=== PATIENT | female | born 1970 | race Caucasian/White ===

== ENCOUNTER 2022-08-13 14:17 | Emergency (ER) | payer MEDICAID ==
[~2022-08-13] VITALS: Ht 170.2 cm; Wt 61.2 kg
[2022-08-13 14:18] VITALS: BP_SYST 155
--- NOTE | 2022-08-13 14:45 | NUR ---
PT BIBA AWAKE AND LETHARGIC, AO4. NO SOB OR DISTRESS. PT FIANCE CALL [phone] DUE TO GENERALIZED WEAKNESS. PT WEAK AND SAID SHE COULDNT GET OUT OF BED. PT STATES HER HIP AND RECTUM HURTS. PT STATES SHE HAS RECTAL RED BLEEDING FOR X2 DAYS. PT HAS HX OF HTN, CHF, ETOH.
--- NOTE | 2022-08-13 15:04 | NUR ---
MD DR BRADLEY AT BEDSIDE
--- NOTE | 2022-08-13 16:40 | NUR ---
EKG performed at BS by RP. Physician given copy of EKG for review.
[2022-08-13 16:56] LABS: BASOPHILS % (AUTO) 0.9 % (0.0-2.0); EOSINOPHILS # (AUTO) 0.1 K/uL (0.0-0.4); EOSINOPHILS % (AUTO) 2.1 % (0.0-4.0); HEMATOCRIT 43.3 % (36-48); HEMOGLOBIN 14.8 g/dL (12.0-16.0); LYMPHOCYTES # (AUTO) 0.6 K/uL (1.0-5.5); LYMPHOCYTES % (AUTO) 15.3 % (20.5-51.5); MEAN CORPUSCULAR HEMOGLOBIN 30 pg (27-31); MEAN CORPUSCULAR HGB CONC 34 % (32-36); MEAN CORPUSCULAR VOLUME 87 fL (79.0-98.0); MONOCYTES # (AUTO) 0.3 K/uL (0.0-1.0); MONOCYTES % (AUTO) 7.9 % (1.7-9.3); NEUTROPHILS # (AUTO) 3.1 K/uL (1.8-7.7); NEUTROPHILS % (AUTO) 73.8 % (40.0-70.0); PLATELET COUNT (AUTO) 153 K/uL (130-430); RED BLOOD CELL COUNT(AUTO) 4.96 MIL/uL (4.2-6.2); RED CELL DISTRIBUTION WIDTH 13.9 % (9.0-15.0); WHITE BLOOD COUNT (AUTO) 4.2 K/uL (4.8-10.8)
--- NOTE | 2022-08-13 16:57 | NUR ---
Pt provided bed panchal for 5 minutes, pt states unable to urinate, pt requests to try after IVF.
[2022-08-13] MEDS ORDERED: NS 500 ML IV ONE (17:00)
[2022-08-13 17:13] LABS: ALANINE AMINOTRANSFERASE 21 U/L (12-78); ALBUMIN 3.2 g/dL (3.4-4.8); ANION GAP 5 (5-15); ASPARTATE AMINOTRANSFERASE 21 U/L (10-37); CALCIUM 8.8 mg/dL (8.4-11.0); CHLORIDE 102 mmol/L (98-107); CREATININE 0.74 mg/dL (0.55-1.30); GFR AFRICAN AMERICAN 107 mL/min (>90); GLUCOSE 97 mg/dL (70-99); TOTAL BILIRUBIN 0.7 mg/dL (0.0-1.0); UREA NITROGEN, BLOOD 8 mg/dL (8-21)
[2022-08-13 17:22] LABS: FREE T4 (FREE THYROXINE) 0.8 ng/dl (0.8-1.5); THYROID STIMULATING HORMONE 0.51 uIu/mL (0.36-3.74)
[2022-08-13 18:37] LABS: BILIRUBIN,URINE NEGATIVE (NEGATIVE); BLOOD, URINE NEGATIVE (NEGATIVE); CLARITY/URINE CLEAR (CLEAR); COLOR,URINE YELLOW (YELLOW); GLUCOSE,URINE NEGATIVE (NEGATIVE); KETONES,URINE NEGATIVE (NEGATIVE); LEUKOCYTE ESTERASE ,URINE NEGATIVE (NEGATIVE); NITRITE, URINE NEGATIVE (NEGATIVE); PROTEIN URINE NEGATIVE (NEGATIVE); UROBILINOGEN,URINE 0.2 (0.2-1.0)
[2022-08-13 19:11] VITALS: BP_SYST 155
--- NOTE | 2022-08-13 19:14 | NUR ---
REPORT GIVEN TO PERNELL, PT STABLE
--- NOTE | 2022-08-13 19:36 | NUR ---
went over d/c paperwork with patient
== END 2022-08-13 19:36 | disposition home or self-care (01) ==
LOC: SED 14:17
DX: E86.0 Dehydration (principal); R53.1 Weakness; Z85.9 Personal history of malignant neoplasm, unspecified; Z79.899 Other long term (current) drug therapy
CPT/HCPCS: 36415; 71045; 80053; 81003; 82140; 82550; 83880; 84439; 84443; 84484; 85025; 86886; 86900; 86901; 93005; 99285